=== PATIENT | female | born 1960 | race Caucasian/White ===

== ENCOUNTER 2016-10-14 20:51 | Emergency (ER) | payer OTHER ==
[2016-10-14] MEDS: IPRATROPIUM/ALBUTEROL 3 ML VIAL NEB ONE ×3 (21:00→23:16)
[2016-10-14] MEDS ORDERED: IPRATROPIUM/ALBUTEROL 3 ML VIAL NEB ONE ×2 (21:02→22:33)
[2016-10-14 21:21] VITALS: TEMP 97.8
--- NOTE | 2016-10-14 21:57 | RAD ---
EXAM DESCRIPTION: X-RAY CHEST- ONE VIEW CLINICAL HISTORY: Asthma attack and shortness of breath. COMPARISON: None. TECHNIQUE: Single view of the chest. FINDINGS: There is presence of mild left basilar discoid atelectasis/infiltrate. There is no pleural effusion There are no pneumothoraces. The cardiomediastinal silhouette is unremarkable. IMPRESSION: There is presence of mild left basilar discoid atelectasis/infiltrate. Electronically signed by: Freddie Haro MD 10/14/2016 21:56
--- NOTE | 2016-10-14 22:24 | ED.PDOC ---
History of Present Illness - General Chief Complaint: Respiratory Problem Stated Complaint: shortness of breath, asthma problems Time Seen by Provider: 10/14/16 22:23 Source: patient, RN notes reviewed, Vital Signs reviewed Exam Limitations: no limitations - History of Present Illness Comments: Patient stated that she has history of asthma and lately she had been using her albuterol mdi more about 6-8 times 2puffs Timing/Duration: getting worse, other - 7 days Cough Quality/Degree: severe, productive cough, sputum - clear Possible Cause: occasional episodes, allergen exposure Improving Factors: nothing Worsening Factors: nothing Associated Symptoms: wheezing Allergies/Adverse Reactions: Allergies NO KNOWN ALLERGY Allergy (Verified 10/14/16 21:08) Home Medications: Ambulatory Orders Albuterol Sulfate Nebs [Proventil Nebs] 2.5 mg INH TID 05/28/14 Thyroid [Victoria Thyroid] 60 mg PO DAILY 05/28/14 HYDROcodone 10MG/APAP 325MG [[place] 10/325] 1 - 2 ea PO Q4H PRN #60 tab 05/30/14 Albuterol Inhaler [Ventolin Hfa Inhaler] 2 puff INH QID PRN #1 inh 09/11/15 Azithromycin [Zithromax Z-Jose Miguel] 1 ea PO DAILY #1 pack 09/11/15 Mometasone Furoate (Inhalation [Asmanex 60 Metered Doses] 220 mcg IN BID guaiFENesin W/CODEINE LIQ [Robitussin AC] 5 - 10 ml PO QID PRN #120 ml 09/11/15 predniSONE [Prednisone] 40 mg PO DAILY #10 tab 09/11/15 Review of Systems - Review of Systems Constitutional: States: no symptoms reported EENTM: States: nose congestion Respiratory: States: see HPI, cough, wheezing Cardiology: States: no symptoms reported Gastrointestinal/Abdominal: States: no symptoms reported Genitourinary: States: no symptoms reported Musculoskeletal: States: no symptoms reported Skin: States: no symptoms reported Neurological: States: no symptoms reported Endocrine: States: no symptoms reported Hematologic/Lymphatic: States: no symptoms reported Past Medical History (General) - Patient Medical History Hx Seizures: No Hx Stroke: No Hx Asthma: Yes Hx of COPD: No Hx Cardiac Disorders: No Hx Congestive Heart Failure: No Hx Pacemaker: No Hx Hypertension: No Hx Thyroid Disease: Yes Hx Diabetes: No Hx Cancer: Yes - skin (2010) Hx MRSA: No Surgical History: cholecystectomy, other - Vaccination History Hx Tetanus, Diphtheria Vaccination: No Hx Influenza Vaccination: No Hx Pneumococcal Vaccination: Yes - 2014 - Social History Hx Tobacco Use: No Hx Chewing Tobacco Use: No Hx Alcohol Use: No Hx Substance Use: No Hx Substance Use Treatment: No Hx Depression: No Feels Threatened In Home Enviroment: No Feels Threatened In a Relationship: No Hx Physical Abuse: No Hx Emotional Abuse: No Hx Suspected Abuse: No - Female History Patient : No Family Medical History - Family History Mother Family History: No Known Living Status: Age at (years of age): 70 Hx Family Asthma: Yes - sisters Hx Family Congestive Heart Failure: No Hx Family Hypertension: No Hx Family Stroke: No Hx Cardiac Disease: No Hx Family Diabetes: No Hx Family Cancer: No Physical Exam - Physical Exam General Appearance: Alert, No apparent distress Eye Exam: bilateral normal ENT Exam: nasal congestion Neck: non-tender, supple, normal inspection Respiratory: chest non-tender, no respiratory distress, no accessory muscle use , wheezing Cardiovascular/Chest: normal peripheral pulses, regular rate, rhythm, no JVD, no murmur Gastrointestinal/Abdominal: normal bowel sounds, non tender, soft Extremity: non-tender, normal inspection, no calf tenderness Skin Exam: normal color, warm/dry Lymphatic: no adenopathy Progress - Results/Orders Results/Orders: 10/14/16 21:28 SVN/Updraft Therapy .ONCE 10/14/16 22:34 SVN/[facility] Therapy .ONCE 10/15/16 09:00 [facility] Laboratory Results WBC 9.4 K/mm3 (4.8-10.8) 10/14/16 21:25 RBC 5.05 M/mm3 (4.20-5.40) 10/14/16 21:25 Hgb 14.1 gm/dL (12.0-16.0) 10/14/16 21:25 Hct 42.2 % (36.0-47.0) 10/14/16 21:25 MCV 83.5 fl (81.0-99.0) 10/14/16 21:25 MCH 28.0 pg (27.0-31.0) 10/14/16 21:25 MCHC 33.5 g/dL (33.0-37.0) 10/14/16 21:25 RDW 13.7 % (11.5-14.5) 10/14/16 21:25 Plt Count 274 K/mm3 (130-400) 10/14/16 21:25 MPV 8.1 fl (7.40-10.4) 10/14/16 21:25 Absolute Neuts (auto) 6.60 K/uL (1.8-6.8) 10/14/16 21:25 Absolute Lymphs (auto) 2.30 K/uL (1.0-3.4) 10/14/16 21:25 Absolute Monos (auto) 0.50 K/uL (0.2-0.8) 10/14/16 21:25 Absolute Eos (auto) 0.00 K/uL (0.0-0.4) 10/14/16 21:25 Absolute Basos (auto) 0.10 K/uL (0.0-0.1) 10/14/16 21:25 Neutrophils % 70.3 % (42.0-78.0) 10/14/16 21:25 Lymphocytes % 23.9 % (20.0-50.0) 10/14/16 21:25 Monocytes % 5.0 % (2.0-9.0) 10/14/16 21:25 Eosinophils % 0.3 % (1.0-5.0) L 10/14/16 21:25 Basophils % 0.5 % (0.0-2.0) 10/14/16 21:25 Sodium 141 mmol/L (135-145) 10/14/16 21:35 Potassium 3.9 mmol/L (3.6-5.0) 10/14/16 21:35 Chloride 106 mmol/L (101-111) 10/14/16 21:35 Carbon Dioxide 26 mmol/L (21-31) 10/14/16 21:35 Anion Gap 12.9 (12-18) 10/14/16 21:35 BUN 21 mg/dL (7-18) H 10/14/16 21:35 Creatinine 0.88 mg/dL (0.6-1.3) 10/14/16 21:35 BUN/Creatinine Ratio 23.9 (10-20) H 10/14/16 21:35 Random Glucose 167 mg/dL (70-105) H 10/14/16 21:35 Serum Osmolality 288.0 mOsm/L (275-295) 10/14/16 21:35 Calcium 9.7 mg/dL (8.4-10.2) 10/14/16 21:35 Total Bilirubin 0.7 mg/dL (0.2-1.0) 10/14/16 21:35 AST 26 IU/L (10-42) 10/14/16 21:35 ALT 24 IU/L (10-60) 10/14/16 21:35 Alkaline Phosphatase 76 IU/L (42-121) 10/14/16 21:35 Serum Total Protein 8.5 gm/dL (6.4-8.2) H 10/14/16 21:35 Albumin 4.7 g/dl (3.2-5.5) 10/14/16 21:35 Globulin 3.8 gm/dL (2.3-3.5) H 10/14/16 21:35 Albumin/Globulin Ratio 1.2 (1.1-1.9) 10/14/16 21:35 Chest x ray-atelectasis/infiltrate Departure - Departure Clinical Impression: Asthmatic bronchitis with acute exacerbation Time of Disposition: 00:52 Disposition: Discharge to Home or Self Care Condition: Good Departure Forms: ED Discharge - Pt. Copy, Patient Portal Self Enrollment Home Medications: Ambulatory Orders Albuterol Sulfate Nebs [Proventil Nebs] 2.5 mg INH TID 05/28/14 Thyroid [Victoria Thyroid] 60 mg PO DAILY 05/28/14 HYDROcodone 10MG/APAP 325MG [[place] 10/325] 1 - 2 ea PO Q4H PRN #60 tab 05/30/14 Albuterol Inhaler [Ventolin Hfa Inhaler] 2 puff INH QID PRN #1 inh 09/11/15 Azithromycin [Zithromax Z-Jose Miguel] 1 ea PO DAILY #1 pack 09/11/15 Mometasone Furoate (Inhalation [Asmanex 60 Metered Doses] 220 mcg IN BID guaiFENesin W/CODEINE LIQ [Robitussin AC] 5 - 10 ml PO QID PRN #120 ml 09/11/15 predniSONE [Prednisone] 40 mg PO DAILY #10 tab 09/11/15 Additional Instructions: RETURN TO EMERGENCY ROOM NEEDED;CONTINUE WITH HOME MEDICATIONS
[2016-10-14] MEDS ORDERED: methylPREDNISolone SODIUM SUC 125 MG/2 ML VIAL IV ONE (22:31)
[2016-10-14] MEDS ORDERED: LACTATED RINGERS 1,000 ML IVS ONE (22:34)
[2016-10-14] MEDS ORDERED: BENZONATATE PERLES 100 MG CAP PO ONE (22:35)
[2016-10-14] MEDS ORDERED: diphenhydrAMINE HCL 25 MG CAP PO ONE (22:35)
[2016-10-14 23:44] VITALS: BP 121/65; O2SAT 93
== END 2016-10-15 01:38 | disposition home or self-care (01) ==
LOC: ER 20:51
DX: J45.901 Unspecified asthma with (acute) exacerbation (principal); Z79.899 Other long term (current) drug therapy; E07.9 Disorder of thyroid, unspecified; Z85.828 Personal history of other malignant neoplasm of skin; Z82.5 Family history of asthma and other chronic lower respiratory diseases
CPT/HCPCS: 36415; 71010; 80053; 85025; 94640; J2930; J7120; J7620; Q0163

== ENCOUNTER 2017-02-02 12:03 | Emergency (ER) | payer OTHER ==
[2017-02-02 12:19] VITALS: TEMP 98.7
--- NOTE | 2017-02-02 12:50 | ED.PDOC ---
History of Present Illness - General Chief Complaint: Lower Extremity Injury Stated Complaint: toe pain, jammed Time Seen by Provider: 02/02/17 12:47 Source: patient, RN notes reviewed Exam Limitations: no limitations - History of Present Illness Initial Comments: Ms. Salma Gil 56 y/o female stated that her right small toe tripped on ottoman and hyperadducted it which happened at home.Pain on the involved toe. Occurred: this morning Pain - Lower Extremity: moderate: Right Foot Method of Injury: other - jammed right small toe Improving Factors: nothing Worsening Factors: rest Allergies/Adverse Reactions: Allergies NO KNOWN ALLERGY Allergy (Verified 02/02/17 12:19) Home Medications: Ambulatory Orders Albuterol Sulfate Nebs [Proventil Nebs] 2.5 mg INH TID 05/28/14 Thyroid [[place] Thyroid] 60 mg PO DAILY 05/28/14 HYDROcodone 10MG/APAP 325MG [[place] 10/325] 1 - 2 ea PO Q4H PRN #60 tab 05/30/14 Albuterol Inhaler [Ventolin Hfa Inhaler] 2 puff INH QID PRN #1 inh 09/11/15 Azithromycin [Zithromax Z-Jose Miguel] 1 ea PO DAILY #1 pack 09/11/15 Mometasone Furoate (Inhalation [Asmanex 60 Metered Doses] 220 mcg IN BID guaiFENesin W/CODEINE LIQ [Robitussin AC] 5 - 10 ml PO QID PRN #120 ml 09/11/15 predniSONE [Prednisone] 40 mg PO DAILY #10 tab 09/11/15 Acetamin W/Cod #3 Tab [Tylenol w/CODEINE #3] 1 ea PO TID PRN #14 tab 02/02/17 Review of Systems - Review of Systems Constitutional: States: no symptoms reported EENTM: States: no symptoms reported Respiratory: States: no symptoms reported Cardiology: States: no symptoms reported Gastrointestinal/Abdominal: States: no symptoms reported Genitourinary: States: no symptoms reported Musculoskeletal: States: see HPI Skin: States: no symptoms reported Neurological: States: no symptoms reported Endocrine: States: no symptoms reported Past Medical History (General) - Patient Medical History Hx Seizures: No Hx Stroke: No Hx Asthma: Yes Hx of COPD: No Hx Cardiac Disorders: No Hx Congestive Heart Failure: No Hx Pacemaker: No Hx Hypertension: No Hx Thyroid Disease: Yes Hx Diabetes: No Hx Cancer: Yes - skin (2010) Hx MRSA: No Surgical History: cholecystectomy, other - btl - Vaccination History Hx Tetanus, Diphtheria Vaccination: No Hx Influenza Vaccination: No Hx Pneumococcal Vaccination: Yes - 2014 - Social History Hx Tobacco Use: No Hx Chewing Tobacco Use: No Hx Alcohol Use: No Hx Substance Use: No Hx Substance Use Treatment: No Hx Depression: No Hx Physical Abuse: No Hx Emotional Abuse: No Hx Suspected Abuse: No - Activities of Daily Living Hospice Agency (if applicable):: None - Female History Patient is a Female of Child Bearing Age (10 -59 yrs old): No Patient : No Family Medical History - Family History Mother Family History: No Known Living Status: Age at (years of age): 70 Hx Family Asthma: Yes - sisters Hx Family Congestive Heart Failure: No Hx Family Hypertension: Yes - mom Hx Family Stroke: No Hx Cardiac Disease: No Hx Family Diabetes: No Hx Family Cancer: No Physical Exam - Physical Exam General Appearance: Alert, Comfortable, No apparent distress Eyes, Ears, Nose, Throat: PERRL/EOMI, normal ENT inspection, TMs normal Neck: non-tender, full range of motion, supple, normal inspection Cardiovascular/Respiratory: regular rate, rhythm, no M/R/G, normal peripheral pulses, no JVD Gastrointestinal/Abdominal: non-tender, no organomegaly Back: normal inspection, no CVA tenderness, no vertebral tenderness Thigh/Hip: normal inspection, non-tender Leg: normal inspection, non-tender, no evidence of injury Knee: normal inspection, non-tender, no evidence of injury Ankle: normal inspection, non-tender, no evidence of injury Foot: normal inspection - right foot, bone tenderness - right 5th toe Neuro/Tendon: normal sensation, normal motor functions, normal tendon functions , responds to pain Mental Status: alert, oriented x 3 Skin: normal color, warm/dry Progress - Results/Orders Results/Orders: demarco taping done. - EKG/XRAY/CT Xray Comments: 5th toe- oblique fracture proxhimal pahlanx read by radiologist Departure - Departure Clinical Impression: Fracture of toe of right foot Qualifiers: Encounter type: initial encounter Toe: lesser toe Fracture type: closed Phalanx : proximal Fracture alignment: nondisplaced Qualified Code(s): S92.514A - Nondisplaced fracture of proximal phalanx of right lesser toe(s), initial encounter for closed fracture Contusion of toe of right foot Qualifiers: Encounter type: initial encounter Toe: lesser toe Damage to nail status: without damage Qualified Code(s): S90.121A - Contusion of right lesser toe(s) without damage to nail, initial encounter Time of Disposition: 13:27 Disposition: Discharge to Home or Self Care Condition: Good Departure Forms: ED Discharge - Pt. Copy, Patient Portal Self Enrollment Instructions: Toe Fracture, DI for Toe Fracture Referrals: Hernán Brown MD [Primary Care Provider] - 1-2 Weeks Prescriptions: Acetamin W/Cod #3 Tab [Tylenol w/CODEINE #3] 1 ea PO TID PRN #14 tab PRN Reason: Pain Home Medications: Ambulatory Orders Albuterol Sulfate Nebs [Proventil Nebs] 2.5 mg INH TID 05/28/14 Thyroid [[place] Thyroid] 60 mg PO DAILY 05/28/14 HYDROcodone 10MG/APAP 325MG [[place] 10/325] 1 - 2 ea PO Q4H PRN #60 tab 05/30/14 Albuterol Inhaler [Ventolin Hfa Inhaler] 2 puff INH QID PRN #1 inh 09/11/15 Azithromycin [Zithromax Z-Jose Miguel] 1 ea PO DAILY #1 pack 09/11/15 Mometasone Furoate (Inhalation [Asmanex 60 Metered Doses] 220 mcg IN BID guaiFENesin W/CODEINE LIQ [Robitussin AC] 5 - 10 ml PO QID PRN #120 ml 09/11/15 predniSONE [Prednisone] 40 mg PO DAILY #10 tab 09/11/15 Acetamin W/Cod #3 Tab [Tylenol w/CODEINE #3] 1 ea PO TID PRN #14 tab 02/02/17 Additional Instructions: FOLLOW UP WITH PRIMARY MD 02/04/17 patient to call for appointment
--- NOTE | 2017-02-02 13:12 | RAD ---
EXAM DESCRIPTION: Toes, Right CLINICAL HISTORY: 56 yearsFemale, pain. Injury. COMPARISON: None. IMPRESSION: 3 views of the right toes demonstrate a mildly displaced oblique acute fracture through the mid to distal shaft of the proximal phalanx in the fifth digit. The remaining osseous structures show no evidence of acute fracture, dislocation, or destructive osseous lesion. Mild soft tissue swelling in the fifth toe. Electronically signed by: Rajendra Hickman MD 02/02/2017 1:10 PM CDT
[2017-02-02 14:10] VITALS: BP 154/83; O2SAT 95
== END 2017-02-02 13:55 | disposition home or self-care (01) ==
LOC: ER 12:03
DX: S92.514A Nondisplaced fracture of proximal phalanx of right lesser toe(s), initial encounter for closed fracture (principal); S90.121A Contusion of right lesser toe(s) without damage to nail, initial encounter; J45.909 Unspecified asthma, uncomplicated; E07.9 Disorder of thyroid, unspecified; Z85.828 Personal history of other malignant neoplasm of skin; Z79.899 Other long term (current) drug therapy; W22.03XA Walked into furniture, initial encounter; Y92.009 Unspecified place in unspecified non-institutional (private) residence as the place of occurrence of the external cause

== ENCOUNTER 2018-03-27 14:40 | Emergency (ER) | payer MEDICARE, OTHER ==
[2018-03-27 14:50] VITALS: TEMP 97.8
--- NOTE | 2018-03-27 14:58 | ED.PDOC ---
History of Present Illness - General Chief Complaint: Lower Extremity Injury Stated Complaint: R outer foot injury Time Seen by Provider: 03/27/18 14:55 Source: patient Exam Limitations: no limitations - History of Present Illness Initial Comments: patient was working out in her garden today and fell on a sprinkler twisted her foot and felt sudden pain with inability to weight-bear. She has had a fractional same area before and this feels very similar. She otherwise has fibromyalgia, hypothyroidism, and asthma. She was in her normal usual health prior to the injury Occurred: just prior to arrival Pain - Lower Extremity: severe: Right Foot Method of Injury: twisted Improving Factors: nothing Worsening Factors: movement Allergies/Adverse Reactions: Allergies NO KNOWN ALLERGY Allergy (Verified 02/02/17 12:19) Home Medications: Ambulatory Orders Thyroid [Z[place]ia Thyroid] 60 mg PO DAILY 05/28/14 Albuterol Inhaler [Ventolin Hfa Inhaler] 2 puff INH QID PRN #1 inh 09/11/15 Amitriptyline HCl [Elavil] 50 mg PO BEDTIME 03/27/18 Meloxicam [Meloxicam] 15 mg PO DAILY 03/27/18 Montelukast [Singulair] 10 mg PO DAILY 03/27/18 Tiotropium [place] Monohydrate [Spiriva Respimat] 1 puff INH DAILY 03/27/18 Review of Systems - Review of Systems Constitutional: States: no symptoms reported. Denies: chills, fever EENTM: States: no symptoms reported Respiratory: States: no symptoms reported Cardiology: States: no symptoms reported Gastrointestinal/Abdominal: States: no symptoms reported Past Medical History (General) - Patient Medical History Hx Seizures: No Hx Stroke: No Hx Asthma: Yes Hx of COPD: No Hx Cardiac Disorders: No Hx Congestive Heart Failure: No Hx Pacemaker: No Hx Hypertension: No Hx Thyroid Disease: Yes Hx Diabetes: No Hx Cancer: Yes - skin (2010) Hx MRSA: No - Vaccination History Hx Tetanus, Diphtheria Vaccination: No Hx Influenza Vaccination: No Hx Pneumococcal Vaccination: No - Social History Hx Tobacco Use: No Hx Chewing Tobacco Use: No Hx Alcohol Use: No Hx Substance Use: No Hx Substance Use Treatment: No Hx Depression: No Hx Physical Abuse: No Hx Emotional Abuse: No Hx Suspected Abuse: No - Female History Patient : No Family Medical History - Family History Mother Family History: No Known Living Status: Age at (years of age): 70 Hx Family Asthma: Yes - sisters Hx Family Congestive Heart Failure: No Hx Family Hypertension: Yes - mom Hx Family Stroke: No Hx Cardiac Disease: No Hx Family Diabetes: No Hx Family Cancer: No Physical Exam - Physical Exam General Appearance: No apparent distress Neck: non-tender Cardiovascular/Respiratory: regular rate, rhythm, no M/R/G, normal breath sounds , no respiratory distress Gastrointestinal/Abdominal: non-tender Back: normal inspection Foot: other - swelling and tenderness to palpation with ecchymosis to the fifth metatarsal normal cap refill and normal sensation Progress - EKG/XRAY/CT Xray Comments: no fracture or dislocation Departure - Departure Clinical Impression: Sprain of right ankle or foot Disposition: Discharge to Home or Self Care Condition: Good Departure Forms: ED Discharge - Pt. Copy, Patient Portal Self Enrollment Instructions: DI for Leg Pain Activity: increase activity as tolerated Home Medications: Ambulatory Orders Thyroid [Zirconia Thyroid] 60 mg PO DAILY 05/28/14 Albuterol Inhaler [Ventolin Hfa Inhaler] 2 puff INH QID PRN #1 inh 09/11/15 Amitriptyline HCl [Elavil] 50 mg PO BEDTIME 03/27/18 Meloxicam [Meloxicam] 15 mg PO DAILY 03/27/18 Montelukast [Singulair] 10 mg PO DAILY 03/27/18 Tiotropium [place] Monohydrate [Spiriva Respimat] 1 puff INH DAILY 03/27/18 Additional Instructions: [id number] ibuprofen and Tylenol for pain. Ice to the area and slow return to normal activity as able. Follow up in 2-3 days if pain continues may require additional imaging.
--- NOTE | 2018-03-27 15:26 | RAD ---
EXAM DESCRIPTION: Foot,Right 3 Views CLINICAL HISTORY: trauma COMPARISON: None FINDINGS: 3 view(s) submitted. No fracture or dislocation is identified. Bone marrow attenuation is unremarkable. No radiopaque foreign body is identified. IMPRESSION: No acute fracture or dislocation. Electronically signed by: King Chua 03/27/2018 3:25 PM CDT
[2018-03-27 15:40] VITALS: BP 124/82; O2SAT 99
== END 2018-03-27 15:41 | disposition home or self-care (01) ==
LOC: ER 14:40
DX: S93.601A Unspecified sprain of right foot, initial encounter (principal); J45.909 Unspecified asthma, uncomplicated; E03.9 Hypothyroidism, unspecified; M79.7 Fibromyalgia; Z85.828 Personal history of other malignant neoplasm of skin; Z79.899 Other long term (current) drug therapy; W18.39XA Other fall on same level, initial encounter; Y93.H2 Activity, gardening and landscaping; Y92.007 Garden or yard of unspecified non-institutional (private) residence as the place of occurrence of the external cause

== ENCOUNTER → 2018-07-20 | Outpatient (CLI) | payer MEDICARE, OTHER | LOC: LAB.O 09:29 | PROVIDERS: ATTEND Internal Medicine | DX: R53.83 Other fatigue (principal); Z79.899 Other long term (current) drug therapy ==

== ENCOUNTER 2018-09-12 20:19 | Emergency (ER) | payer MEDICARE, OTHER ==
[2018-09-12] MEDS: IPRATROPIUM/ALBUTEROL 3 ML VIAL NEB ONE ×2 (20:27→22:10)
[2018-09-12 20:51] VITALS: TEMP 97.7
--- NOTE | 2018-09-12 21:05 | ED.PDOC ---
History of Present Illness - General Chief Complaint: Respiratory Problem Stated Complaint: difficulty breathing onset 15 mins ago Time Seen by Provider: 09/12/18 20:20 Source: patient Exam Limitations: no limitations - History of Present Illness Initial Comments: Patient presents with dyspnea since about 90 minutes [employer]. She has asthma and takes regularly scheduled breathing treatments. She tried her ProAir inhaler when this event started but it did not help. She says that her heart rate has been up several times today. She denies any chest pain or cardiac history. She is awaiting the results of media monitor that her pcp had her wear. She has a CT chest ordered for tomorrow because of her "breathing problems". She denies every having been admitted to the hospital for asthma. She has recently had several courses of steroids and "an antibiotic". No other complaints. Timing/Duration: 1-3 hours Severity: moderate Improving Factors: nothing Worsening Factors: nothing Associated Symptoms: cough - has had a dry cough along with this dyspneic episode Allergies/Adverse Reactions: Allergies Eggs or Egg-derived Products Allergy (Verified 09/12/18 21:03) Milk-related Compounds Allergy (Verified 09/12/18 21:03) Home Medications: Ambulatory Orders Thyroid [[place] Thyroid] 60 mg PO DAILY 05/28/14 Albuterol Inhaler [Ventolin Hfa Inhaler] 2 puff INH QID PRN #1 inh 09/11/15 Amitriptyline HCl [Elavil] 50 mg PO BEDTIME 03/27/18 Meloxicam [Meloxicam] 15 mg PO DAILY 03/27/18 Montelukast [Singulair] 10 mg PO DAILY 03/27/18 Tiotropium [place] Monohydrate [Spiriva Respimat] 1 puff INH DAILY 03/27/18 Prednisone [Deltasone] 20 mg PO DAILY #5 tab 09/12/18 Review of Systems - Review of Systems Constitutional: States: no symptoms reported EENTM: States: no symptoms reported Respiratory: States: see HPI Cardiology: States: no symptoms reported Gastrointestinal/Abdominal: States: no symptoms reported Genitourinary: States: no symptoms reported Musculoskeletal: States: no symptoms reported Skin: States: no symptoms reported Neurological: States: no symptoms reported Endocrine: States: no symptoms reported Hematologic/Lymphatic: States: no symptoms reported Past Medical History (General) - Patient Medical History Hx Seizures: No Hx Stroke: No Hx Asthma: Yes Hx of COPD: No Hx Cardiac Disorders: No Hx Congestive Heart Failure: No Hx Pacemaker: No Hx Hypertension: No Hx Thyroid Disease: Yes Hx Diabetes: No Hx Cancer: Yes - skin (2010) Hx MRSA: No Surgical History: cholecystectomy - Vaccination History Hx Tetanus, Diphtheria Vaccination: No Hx Influenza Vaccination: No Hx Pneumococcal Vaccination: No - Social History Hx Tobacco Use: No Hx Chewing Tobacco Use: No Hx Alcohol Use: No Hx Substance Use: No Hx Substance Use Treatment: No Hx Depression: No Hx Physical Abuse: No Hx Emotional Abuse: No Hx Suspected Abuse: No - Female History Patient : No Family Medical History - Family History Mother Family History: No Known Living Status: Age at (years of age): 70 Hx Family Asthma: Yes - sisters Hx Family Congestive Heart Failure: No Hx Family Hypertension: Yes - mom Hx Family Stroke: No Hx Cardiac Disease: No Hx Family Diabetes: No Hx Family Cancer: No Physical Exam - Physical Exam General Appearance: Alert Eye Exam: bilateral normal Ears, Nose, Throat: normal ENT inspection Neck: non-tender, full range of motion, supple Respiratory: other - mild inspiratory and expiratory wheezing. no rales/rhonchi Cardiovascular/Chest: normal peripheral pulses, no edema, tachycardia Gastrointestinal/Abdominal: normal bowel sounds, non tender, soft Back Exam: normal inspection, no CVA tenderness Extremity: normal range of motion, non-tender, normal inspection Neurologic: no motor/sensory deficits, alert, normal mood/affect, oriented x 3 Skin Exam: normal color Lymphatic: no adenopathy Progress - Progress Progress: 09/12/18 22:12 Laboratory Tests 09/12/18 09/12/18 20:46 20:46 WBC 9.0 RBC 5.15 Hgb 14.5 Hct 43.4 MCV 84.3 MCH 28.1 MCHC 33.4 RDW 13.0 Plt Count 305 MPV 7.4 Absolute Neuts (auto) 3.90 Absolute Lymphs (auto) 4.00 H Absolute Monos (auto) 0.60 Absolute Eos (auto) 0.40 Absolute Basos (auto) 0.10 Neutrophils % 43.6 Lymphocytes % 44.0 Monocytes % 7.2 Eosinophils % 4.3 Basophils % 0.9 Sodium 141 Potassium 3.5 L Chloride 104 Carbon Dioxide 27 Anion Gap 13.5 BUN 15 Creatinine 0.76 BUN/Creatinine Ratio 19.7 Random Glucose 144 H Serum Osmolality 284.6 Calcium 9.9 Total Bilirubin 0.2 AST 24 ALT 22 Alkaline Phosphatase 97 Creatine Kinase 83 CK-MB (CK-2) 1.7 CK-MB (CK-2) % Not Reportable Troponin I < 0.02 B-Natriuretic Peptide < 5.0 Serum Total Protein 7.2 Albumin 4.2 Globulin 3.0 Albumin/Globulin Ratio 1.4 Patient's dyspnea resolved after a duonebs. She did not requirt oxygen TKS >92% . Her EKG, read by me, showed sinus tachycardia at 105. There were no ST changes nor T wave inversions. No LBBB. CXR negative. CT chest showed no acute disease. There was a calcified 7 mm nodule in the left lung which she was informed of. There was an adrenal mass that she was informed of. She was advised to follow up with her pcp regarding both of these findings. Her coughing resolved in the E.D. as well. She was given Solumedrol 60 mg IV x one and one final Duonebs before discharge. She was given an RX for prednisone 20 mg po qd x 5 days with instructions to call her emergency management consultant tomorrow before filling the prescription in case they wanted to do something different. Care instructions given. E.R. warnings given. Questions were elicited and answered. The patient voiced understanding and agreement with the plan. Care instructions given. E.R. warnings given. Questions were elicited and answered. The patient voiced understanding and agreement with the plan. Departure - Departure Clinical Impression: Acute asthma Disposition: Discharge to Home or Self Care Condition: Good Departure Forms: ED Discharge - Pt. Copy, Patient Portal Self Enrollment Instructions: DI for Asthma -- Adult Activity: increase activity as tolerated Referrals: Lynda Alatorre FNP [Primary Care Provider] - 1-2 Weeks Prescriptions: Prednisone [Deltasone] 20 mg PO DAILY #5 tab Home Medications: Ambulatory Orders Thyroid [[place] Thyroid] 60 mg PO DAILY 05/28/14 Albuterol Inhaler [Ventolin Hfa Inhaler] 2 puff INH QID PRN #1 inh 09/11/15 Amitriptyline HCl [Elavil] 50 mg PO BEDTIME 03/27/18 Meloxicam [Meloxicam] 15 mg PO DAILY 06/17/18 Montelukast [Singulair] 10 mg PO DAILY 03/27/18 Tiotropium [place] Monohydrate [Spiriva Respimat] 1 puff INH DAILY 03/27/18 Prednisone [Deltasone] 20 mg PO DAILY #5 tab 09/12/18 Additional Instructions: Call your emergency management consultant in the morning and see if he has any objections to you taking the prednisone for 5 days. Keep your appointment for your Upper [facility]. Tell your emergency management consultant that we did the CT chest here and he can request the results. Return to the E.R. if your symptoms recur.
[2018-09-12] MEDS: methylPREDNISolone SODIUM SUC 125 MG/2 ML VIAL IV ONE (21:12)
--- NOTE | 2018-09-12 21:20 | RAD ---
EXAM: Chest,1 View CLINICAL INDICATION: 37-year-old female with dyspnea. TECHNIQUE: Single view, AP portable chest was obtained. COMPARISON: Single view chest 10/14/2016. FINDINGS: Unremarkable cardiac and mediastinal silhouette. Heart size is normal. Lungs are clear without focal opacity, pneumothorax or pleural effusions. Retrocardiac linear opacities suggesting subsegmental atelectasis or scarring. The visualized bones are within normal limits. IMPRESSION: No acute cardiopulmonary abnormalities. Electronically signed by: Coral Engle MD 09/12/2018 9:19 PM MEDICAL BILLING AND CODING SPECIALIST
--- NOTE | 2018-09-12 21:58 | CT ---
EXAM DESCRIPTION: Chest w/o Contrast CLINICAL HISTORY: cough and wheezing COMPARISON: None Available. TECHNIQUE: Contiguous axial images of the chest were obtained from the thoracic inlet up to the upper abdomen followed by reconstruction images. This exam was performed according to our departmental dose-optimization program, which includes automated exposure control, adjustment of the mA and/or kV according to patient size and/or use of iterative reconstruction technique. FINDINGS: Gallbladder is surgically absent. There are punctate splenic calcifications. Left adrenal soft tissue mass measures 14 mm diameter and could be an adenoma. There is a calcified 7 mm nodule in the left anterior lung. This could be sequela of prior granulomatous disease. Atelectasis involves the left lung base. The aorta is of normal contour and tapering. There is no pericardial or pleural fluid collection. There is no parenchymal consolidation or pneumothorax. Limited images of the upper abdomen are otherwise within normal limits. IMPRESSION: Left adrenal mass. No acute intrathoracic abnormality. Electronically signed by: King Chua 09/12/2018 9:57 PM [employer]
[2018-09-12 22:32] VITALS: BP 144/89; O2SAT 96
== END 2018-09-12 22:33 | disposition home or self-care (01) ==
LOC: ER 20:19
DX: J45.901 Unspecified asthma with (acute) exacerbation (principal); R00.0 Tachycardia, unspecified; R91.1 Solitary pulmonary nodule; E27.8 Other specified disorders of adrenal gland; E07.9 Disorder of thyroid, unspecified; Z79.899 Other long term (current) drug therapy; Z85.828 Personal history of other malignant neoplasm of skin

== ENCOUNTER 2019-09-15 12:12 | Emergency (ER) | payer OTHER ==
[2019-09-15 12:51] VITALS: BP 151/89; TEMP 98; O2SAT 93
--- NOTE | 2019-09-15 12:52 | RAD ---
EXAM DESCRIPTION: Chest,2 Views CLINICAL HISTORY: sob COMPARISON: September 12, 2018 FINDINGS: Two-view chest x-ray shows cardiomediastinal silhouette and pulmonary vasculature to be within normal limits. The lungs are normally aerated. Stable linear scarring or atelectasis in the left lower lobe retrocardiac region compared to previous.. Calcified pulmonary nodules in the left chest are again seen consistent with old granulomatous disease. Costophrenic angles are sharp. Mild disc degenerative changes of the spine. IMPRESSION: No radiographic evidence of acute cardiopulmonary disease. Stable chronic changes to the chest. Electronically signed by: Nick Adair MD 09/15/2019 12:51 PM [facility]
--- NOTE | 2019-09-15 13:04 | ED.PDOC ---
History of Present Illness - General Chief Complaint: Respiratory Problem Stated Complaint: Cough, congestion Time Seen by Provider: 09/15/19 12:23 Source: patient Exam Limitations: no limitations - History of Present Illness Initial Comments: The patient is a 58-year-old female presenting to the emergency room secondary to a recent asthma exacerbation related to what appears to be an acute to subacute bronchitis present over the last 5-7 days. She does take Xopenex already as well as breo for her airway disease. No definite fever. She has had a mild runny nose. Cough is mildly productive. The patient reports that she has had multiple episodes of pneumonia in the past, and would like to avoid another. No hypoxia. Vital signs are stable. Mild scattered wheezes. Mild scattered rhonchi. Timing/Duration: 1 week Severity: moderate Improving Factors: nothing Worsening Factors: nothing Associated Symptoms: cough, malaise, shortness of breath Allergies/Adverse Reactions: Allergies Eggs or Egg-derived Products Allergy (Verified 09/12/18 21:03) Milk-related Compounds Allergy (Verified 09/12/18 21:03) Home Medications: Ambulatory Orders Thyroid [[place] Thyroid] 60 mg PO DAILY 05/28/14 Albuterol Inhaler [Ventolin Hfa Inhaler] 2 puff INH QID PRN #1 inh 09/11/15 Amitriptyline HCl [Elavil] 50 mg PO BEDTIME 03/27/18 Montelukast [Singulair] 10 mg PO DAILY 03/27/18 Azithromycin 500 mg PO DAILY #5 tab 09/15/19 Fluticasone Furoate-Vilanterol [Breo Ellipta 200-25 Mcg/INH] 1 puff INH BID 09/15/19 Umeclidinium [place] [Incruse Ellipta] 1 puff INH DAILY 09/15/19 predniSONE [Prednisone] 20 mg PO DAILY #5 tab 09/15/19 Review of Systems - Review of Systems Constitutional: States: malaise EENTM: States: nose congestion Respiratory: States: cough, short of breath, wheezing Cardiology: States: no symptoms reported Gastrointestinal/Abdominal: States: no symptoms reported Genitourinary: States: no symptoms reported Musculoskeletal: States: no symptoms reported Skin: States: no symptoms reported Neurological: States: no symptoms reported Endocrine: States: no symptoms reported All other Systems: No Change from Baseline Past Medical History (General) - Patient Medical History Hx Seizures: No Hx Stroke: No Hx Asthma: Yes Hx of COPD: No Hx Cardiac Disorders: No Hx Congestive Heart Failure: No Hx Pacemaker: No Hx Hypertension: No Hx Thyroid Disease: Yes Hx Diabetes: No Hx Cancer: Yes - skin (2010) Hx MRSA: No - Vaccination History Hx Tetanus, Diphtheria Vaccination: No Hx Influenza Vaccination: No Hx Pneumococcal Vaccination: No - Social History Hx Tobacco Use: No Hx Chewing Tobacco Use: No Hx Alcohol Use: No Hx Substance Use: No Hx Substance Use Treatment: No Hx Depression: No Hx Physical Abuse: No Hx Emotional Abuse: No Hx Suspected Abuse: No - Female History Patient : No Family Medical History - Family History Mother Family History: No Known Living Status: Age at (years of age): 70 Hx Family Asthma: Yes - sisters Hx Family Congestive Heart Failure: No Hx Family Hypertension: Yes - mom Hx Family Stroke: No Hx Cardiac Disease: No Hx Family Diabetes: No Hx Family Cancer: No Physical Exam - Physical Exam General Appearance: Alert, Comfortable, No apparent distress Eye Exam: bilateral normal Ears, Nose, Throat: hearing grossly normal, nasal congestion Neck: full range of motion, supple Respiratory: no respiratory distress, no accessory muscle use, rhonchi, wheezing Cardiovascular/Chest: normal peripheral pulses, regular rate, rhythm, no edema Peripheral Pulses: radial,right: 2+, radial,left: 2+ Gastrointestinal/Abdominal: non tender, soft Rectal Exam: deferred Back Exam: no CVA tenderness, no vertebral tenderness Extremity: normal range of motion, non-tender, normal inspection, no pedal edema, normal capillary refill 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 While this is most likely viral at this point, the patient will be put on azithromycin primarily for prophylaxis against another episode of pneumonia, and to cover for atypical bacteria that can cause a bronchitis type picture. The patient will also be placed on prednisone 20 mg daily for the next 5 days for the asthma component. She is to continue her other medications for asthma. Follow back up with her primary care doctor next week. ER warnings were given for any worsening. - Results/Orders Results/Orders: chest x-ray shows no evidence of any acute process. Rapid flu is negative. Departure - Departure Clinical Impression: Asthmatic bronchitis with acute exacerbation Qualifiers: Asthma severity: moderate Asthma persistence: persistent Qualified Code(s): J45.41 - Moderate persistent asthma with (acute) exacerbation Disposition: Discharge to Home or Self Care Condition: Fair Departure Forms: ED Discharge - Pt. Copy, Patient Portal Self Enrollment Instructions: DI for Asthma -- Adult Diet: regular diet Activity: increase activity as tolerated Referrals: Shen Ruiz FNP [Primary Care Provider] - 1-2 Weeks Prescriptions: Azithromycin 500 mg PO DAILY #5 tab predniSONE [Prednisone] 20 mg PO DAILY #5 tab Home Medications: Ambulatory Orders Thyroid [[place] Thyroid] 60 mg PO DAILY 05/28/14 Albuterol Inhaler [Ventolin Hfa Inhaler] 2 puff INH QID PRN #1 inh 09/11/15 Amitriptyline HCl [Elavil] 50 mg PO BEDTIME 03/27/18 Montelukast [Singulair] 10 mg PO DAILY 03/27/18 Azithromycin 500 mg PO DAILY #5 tab 09/15/19 Fluticasone Furoate-Vilanterol [Breo Ellipta 200-25 Mcg/INH] 1 puff INH BID 09/15/19 Umeclidinium [place] [Incruse Ellipta] 1 puff INH DAILY 09/15/19 predniSONE [Prednisone] 20 mg PO DAILY #5 tab 09/15/19 Additional Instructions: the patient is a 58-year-old female with a asthma exacerbation related to what appears to be a respiratory tract infection that at this point is most clinically consistent with bronchitis. While this is most likely viral at this point, the patient will be put on azithromycin primarily for prophylaxis against another episode of pneumonia, and to cover for atypical bacteria that can cause a bronchitis type picture. The patient will also be placed on prednisone 20 mg daily for the next 5 days for the asthma component. She is to continue her other medications for asthma. Follow back up with her primary care doctor next week. ER warnings were given for any worsening.
== END 2019-09-15 13:09 | disposition home or self-care (01) ==
LOC: ER 12:12
DX: J45.41 Moderate persistent asthma with (acute) exacerbation (principal); E07.9 Disorder of thyroid, unspecified; Z85.828 Personal history of other malignant neoplasm of skin; Z79.899 Other long term (current) drug therapy; Z87.01 Personal history of pneumonia (recurrent)

== ENCOUNTER 2019-11-16 14:23 | Emergency (ER) | payer OTHER ==
[2019-11-16] MEDS ORDERED: IPRATROPIUM BROMIDE NEBS 0.5 MG/2.5 ML VIAL NEB ONE ×2 (14:33)
[2019-11-16] MEDS ORDERED: LEVALBUTEROL NEBS 1.25 MG/3 ML VIAL NEB ONE ×2 (14:33)
[2019-11-16] MEDS ORDERED: ACETYLCYSTEIN 20 % 6,000 MG/30 ML VIAL NEB ONE (14:43)
[2019-11-16 14:53] VITALS: TEMP 97.8
--- NOTE | 2019-11-16 15:20 | RAD ---
EXAM DESCRIPTION: Chest,2 Views CLINICAL HISTORY: left mid lung discomfort and cough COMPARISON: September 15, 2019 FINDINGS: Two-view chest x-ray shows cardiomediastinal silhouette and pulmonary vasculature to be within normal limits. The lungs are normally aerated and clear. Costophrenic angles are sharp. Mild disc degenerative changes of the spine are seen. IMPRESSION: No radiographic evidence of acute cardiopulmonary disease. Electronically signed by: Nick Adair MD 11/16/2019 3:19 PM [facility]
[2019-11-16] MEDS ORDERED: AMOXICILLIN & POT CLAVULANATE 875 MG TAB PO ONE (16:07)
--- NOTE | 2019-11-16 16:10 | ED.PDOC ---
History of Present Illness - General Chief Complaint: Respiratory Problem Stated Complaint: sob Time Seen by Provider: 11/16/19 14:24 Source: patient Exam Limitations: no limitations - History of Present Illness Initial Comments: The patient is a 59-year-old female with chronic reactive airway disease presenting to the emergency room secondary to persistent cough along with a left-sided chest discomfort when she coughs. The patient has had worsening of symptoms over the last 10 to 12 days. She finished up a course of azithromycin a few days ago. She is still on oral steroids along with her routine breathing treatments. She reports shortness of breath but is not hypoxic. She is not in respiratory distress. She does have mild wheezing and very mild rhonchi scattered. She is pleasant and cooperative. No fever. She is able to produce a fairly thick yellow sputum. Timing/Duration: unsure Severity: moderate Improving Factors: nothing Worsening Factors: nothing Associated Symptoms: cough, shortness of breath Allergies/Adverse Reactions: Allergies Eggs or Egg-derived Products Allergy (Verified 11/16/19 14:53) Milk-related Compounds Allergy (Verified 11/16/19 14:53) Home Medications: Ambulatory Orders Thyroid [[place] Thyroid] 60 mg PO DAILY 05/28/14 Albuterol Inhaler [Ventolin Hfa Inhaler] 2 puff INH QID PRN #1 inh 09/11/15 Amitriptyline HCl [Elavil] 50 mg PO BEDTIME 03/27/18 Montelukast [Singulair] 10 mg PO DAILY 03/27/18 Azithromycin 500 mg PO DAILY #5 tab 09/15/19 Fluticasone Furoate-Vilanterol [Breo Ellipta 200-25 Mcg/INH] 1 puff INH BID 09/15/19 Umeclidinium [place] [Incruse Ellipta] 1 puff INH DAILY 09/15/19 predniSONE [Prednisone] 20 mg PO DAILY #5 tab 09/15/19 Amoxicillin & Pot Clavulanate [Augmentin Tab] 875 mg PO BID #14 tab 11/16/19 Review of Systems - Review of Systems Constitutional: States: malaise EENTM: States: no symptoms reported Respiratory: States: cough, short of breath Cardiology: States: no symptoms reported Gastrointestinal/Abdominal: States: no symptoms reported Genitourinary: States: no symptoms reported Musculoskeletal: States: no symptoms reported Skin: States: no symptoms reported Neurological: States: no symptoms reported Endocrine: States: no symptoms reported All other Systems: No Change from Baseline Past Medical History (General) - Patient Medical History Hx Seizures: No Hx Stroke: No Hx Asthma: Yes Hx of COPD: No Hx Cardiac Disorders: No Hx Congestive Heart Failure: No Hx Pacemaker: No Hx Hypertension: No Hx Thyroid Disease: Yes Hx Diabetes: No Hx Cancer: Yes - skin (2010) Hx MRSA: No - Vaccination History Hx Tetanus, Diphtheria Vaccination: No Hx Influenza Vaccination: No Hx Pneumococcal Vaccination: No Immunizations Up to Date: No - Social History Hx Tobacco Use: No Hx Chewing Tobacco Use: No Hx Alcohol Use: No Hx Substance Use: No Hx Substance Use Treatment: No Hx Depression: No Hx Physical Abuse: No Hx Emotional Abuse: No Hx Suspected Abuse: No - Female History Patient is a Female of Child Bearing Age (10 -59 yrs old): No Patient : No Family Medical History - Family History Mother Family History: No Known Living Status: Age at (years of age): 70 Hx Family Asthma: Yes - sisters Hx Family Congestive Heart Failure: No Hx Family Hypertension: Yes - mom Hx Family Stroke: No Hx Cardiac Disease: No Hx Family Diabetes: No Hx Family Cancer: No Physical Exam - Physical Exam General Appearance: Alert, Comfortable, No apparent distress - Frequent coughing Eye Exam: bilateral normal Ears, Nose, Throat: hearing grossly normal, normal pharynx Neck: full range of motion, supple Respiratory: no respiratory distress - Frequent coughing, no accessory muscle use, rhonchi, wheezing Cardiovascular/Chest: normal peripheral pulses, regular rate, rhythm, no edema Peripheral Pulses: radial,right: 2+, radial,left: 2+ Gastrointestinal/Abdominal: non tender, soft Rectal Exam: deferred Back Exam: no CVA tenderness, no vertebral tenderness Extremity: normal range of motion, non-tender, normal inspection, no pedal edema, normal capillary refill 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 Progress - Progress Progress: 11/16/19 16:11 The patient is a 59-year-old female presented emergency room with no significant improvement over the last 10 days in her respiratory symptoms. She is to continue breathing treatments and her oral steroid. We will change the antibiotic to Augmentin for the next 7 days. She can nebulize saline several times a day as well as a mucolytic. 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 Sputum is being cultured here today. No respiratory distress, no hypoxia and vital signs are otherwise stable. ER warnings are given for any worsening. [email or web address] Departure - Departure Clinical Impression: Bronchitis Disposition: Discharge to Home or Self Care Condition: Fair Departure Forms: ED Discharge - Pt. Copy, Patient Portal Self Enrollment Instructions: DI for Asthma -- Adult Diet: regular diet Activity: increase activity as tolerated Referrals: Shen Ruiz FNP [Primary Care Provider] - 1-2 Weeks Prescriptions: Amoxicillin & Pot Clavulanate [Augmentin Tab] 875 mg PO BID #14 tab Home Medications: Ambulatory Orders Thyroid [[place] Thyroid] 60 mg PO DAILY 05/28/14 Albuterol Inhaler [Ventolin Hfa Inhaler] 2 puff INH QID PRN #1 inh 09/11/15 Amitriptyline HCl [Elavil] 50 mg PO BEDTIME 03/27/18 Montelukast [Singulair] 10 mg PO DAILY 03/27/18 Azithromycin 500 mg PO DAILY #5 tab 09/15/19 Fluticasone Furoate-Vilanterol [Breo Ellipta 200-25 Mcg/INH] 1 puff INH BID 09/15/19 Umeclidinium [place] [Incruse Ellipta] 1 puff INH DAILY 09/15/19 predniSONE [Prednisone] 20 mg PO DAILY #5 tab 09/15/19 Amoxicillin & Pot Clavulanate [Augmentin Tab] 875 mg PO BID #14 tab 11/16/19 Additional Instructions: The patient is a 59-year-old female presented emergency room with no significant improvement over the last 10 days in her respiratory symptoms. She is to continue breathing treatments and her oral steroid. We will change the antibiotic to Augmentin for the next 7 days. She can nebulize saline several times a day as well as a mucolytic. 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 Sputum is being cultured here today. No respiratory distress, no hypoxia and vital signs are otherwise stable. ER warnings are given for any worsening.
[2019-11-16 16:34] VITALS: BP 134/92; O2SAT 95
== END 2019-11-16 16:34 | disposition home or self-care (01) ==
LOC: ER 14:23
DX: J45.909 Unspecified asthma, uncomplicated (principal); R00.0 Tachycardia, unspecified; E07.9 Disorder of thyroid, unspecified; Z85.828 Personal history of other malignant neoplasm of skin; Z79.899 Other long term (current) drug therapy
CPT/HCPCS: 71046; 87070; 94640; J7614; J7644

== ENCOUNTER → 2020-04-18 | Outpatient (CLI) | payer OTHER | LOC: LAB.O 15:41 | PROVIDERS: ATTEND Internal Medicine | DX: Z79.899 Other long term (current) drug therapy (principal); Z86.19 Personal history of other infectious and parasitic diseases ==

== ENCOUNTER 2020-05-21 09:53 | Emergency (ER) | payer OTHER ==
--- NOTE | 2020-05-21 10:31 | ED.PDOC ---
History of Present Illness - General Chief Complaint: Chest Pain/MS Stated Complaint: syncope, chest tightness Time Seen by Provider: 05/21/20 10:22 Additional Information: Patient is a 59-year-old female who presents to the ED with chief complaint of palpitations. Patient was at work today and felt her heart race. She has an apple watch and noted that her heart rate had gone into the 120s. Patient indicates she had a very brief syncopal episode associated with the palpitations. Patient denies chest pain, shortness of breath, cough, fever, chills, nausea, vomiting. She did indicate that she had some numbness and tingling in her left arm. Patient has had a total thyroidectomy and takes "Armor thyroid substitute". Patient has had issues with palpitations in the past and has seen a building construction contractor, Dr. Desir in [place]. She reports elevated HR at that time to 140. She has had a Holter monitor testing done but she does not know the results as she has not gone back for follow-up. Dr. Desir had placed patient on metoprolol to control her palpitations but she is only taking that as needed and is not taking it presently. Patient is feeling back to normal at this time. She indicates that she is under considerable st ress at work with a payroll deadline that was due today. - History of Present Illness Allergies/Adverse Reactions: Allergies Eggs or Egg-derived Products Allergy (Verified 11/16/19 14:53) Milk-related Compounds Allergy (Verified 11/16/19 14:53) Home Medications: Ambulatory Orders Thyroid [[place] Thyroid] 60 mg PO DAILY 05/28/14 Albuterol Inhaler [Ventolin Hfa Inhaler] 2 puff INH QID PRN #1 inh 09/11/15 Amitriptyline HCl [Elavil] 50 mg PO BEDTIME 03/27/18 Montelukast [Singulair] 10 mg PO DAILY 03/27/18 Azithromycin 500 mg PO DAILY #5 tab 09/15/19 Fluticasone Furoate-Vilanterol [Breo Ellipta 200-25 Mcg/INH] 1 puff INH BID 09/15/19 Umeclidinium Onley [Incruse Ellipta] 1 puff INH DAILY 09/15/19 predniSONE [Prednisone] 20 mg PO DAILY #5 tab 09/15/19 Amoxicillin & Pot Clavulanate [Augmentin Tab] 875 mg PO BID #14 tab 11/16/19 Amoxicillin & Pot Clavulanate [Augmentin Tab] 875 mg PO BID 10 Days tab 12/05/19 Benzonatate Perles [Tessalon Perles] 100 mg PO Q8H PRN #20 cap 12/05/19 Doxycycline Hyclate 100 mg PO BID 10 Days cap 12/05/19 Ipratropium Onley Hfa [Atrovent Hfa] 17 mcg IN Q6H PRN #1 aer 12/05/19 Albuterol Sulfate Nebs [Proventil Nebs] 2.5 mg NEB Q4HR 10 Days vial 12/10/19 Benzonatate 200 mg PO TID #12 cap 12/10/19 Ipratropium On[place] Nebs [Atrovent NEBS] 0.5 mg NEB Q4HR 5 Days vial 12/10/19 Nebulizers [Nebulizer System All-in-O] 1 kit XX Q4HR 10 Days kit 12/10/19 Prednisone 50 mg PO DAILY #5 tab 12/10/19 Review of Systems - Review of Systems Constitutional: States: no symptoms reported. Denies: chills, fever EENTM: States: no symptoms reported Respiratory: States: no symptoms reported. Denies: cough, short of breath Cardiology: States: palpitations, syncope Gastrointestinal/Abdominal: States: no symptoms reported. Denies: abdominal pain, nausea, vomiting Musculoskeletal: States: no symptoms reported. Denies: muscle pain Skin: States: no symptoms reported. Denies: rash Neurological: Denies: headache, weakness Endocrine: States: no symptoms reported. Denies: increased hunger, increased thirst, increased urine All other Systems: Reviewed and Negative Past Medical History (General) - Patient Medical History Hx Seizures: No Hx Stroke: No Hx Asthma: Yes Hx of COPD: No Hx Cardiac Disorders: Yes - "erratic HR" Hx Congestive Heart Failure: No Hx Pacemaker: No Hx Hypertension: No Hx Thyroid Disease: Yes Hx Diabetes: No Hx Cancer: Yes - skin (2010) Hx MRSA: No - Vaccination History Hx Tetanus, Diphtheria Vaccination: No Hx Influenza Vaccination: No - allergic to eggs Hx Pneumococcal Vaccination: No - Social History Hx Tobacco Use: No Hx Chewing Tobacco Use: No Hx Alcohol Use: No Hx Substance Use: No Hx Substance Use Treatment: No Hx Depression: No Hx Physical Abuse: No Hx Emotional Abuse: No Hx Suspected Abuse: No - Female History Patient : No Family Medical History - Family History Mother Family History: No Known Living Status: Age at (years of age): 70 Hx Family Asthma: Yes - sisters Hx Family Congestive Heart Failure: No Hx Family Hypertension: Yes - mom Hx Family Stroke: No Hx Cardiac Disease: No Hx Family Diabetes: No Hx Family Cancer: No Physical Exam - Physical Exam General Appearance: Alert, Comfortable, No apparent distress Neck: supple, normal inspection Respiratory: chest non-tender, lungs clear, normal breath sounds, no respiratory distress, no accessory muscle use Cardiovascular/Chest: normal peripheral pulses, regular rate, rhythm - Rate 87 on the monitor, no edema, no gallop, no JVD, no murmur Peripheral Pulses: radial,right: 2+, radial,left: 2+ Gastrointestinal/Abdominal: normal bowel sounds, non tender, soft, no organomegaly, no pulsatile mass Extremity: normal inspection 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 05/21/20 10:34 EKG: Normal sinus rhythm, rate 100, normal QRS, normal axis, nonspecific ST changes, normal T waves. Negative STEMI. EKG read by Aston Mcknight MD. 05/21/20 11:51 I have spoken with Dr[address] Desir's nurse who is requested that I fax patient's EKG to them and he will review and call me back. Patient is asymptomatic at this time and her initial troponin is normal as is her d-dimer and free T4. 05/21/20 15:19 Patient reassessed and is very eager to be discharged home.. Patient's repeat troponin is negative and she has remained asymptomatic in the ED with no episodes of chest pain or palpitations. Patient is a low risk HEART score. I have called Dr. Desir again and apparently he is now in STEMI but will call back when he is out of his procedure. I discussed with patient that she does not need to be in the ED any longer and does not require admission but she does require follow-up with Dr. Desir. I have advised her to take her previously prescribed labetalol daily as directed and not as needed and she will call Dr. Desir's office tomorrow to make an appointment for reevaluation later this week. She will return to the ED if her symptoms worsen. Vital signs stable, patient is NAD and looks clinically well and I believe is safe for discharge with outpatient follow-up. Follow-up instructions, discharge instructions and return to ED precautions discussed with patient. Patient voices understanding and willingness to comply with instructions. All laboratory and radiographic results have been discussed with the patient, and all questions answered. Patient is happy with plan. 05/21/20 15:36 Dr. Desir has just called me back and I have reviewed plan with him for patient to continue with the labetalol and follow-up in his office this week and Dr. Desir is in agreement. I discussed this with patient and she voices understanding and will call his office tomorrow to make an appointment. Departure - Departure Clinical Impression: Palpitations Chest pain Qualifiers: Chest pain type: unspecified Qualified Code(s): R07.9 - Chest pain, unspecified Time of Disposition: 15:21 Disposition: Discharge to Home or Self Care Condition: Fair Departure Forms: ED Discharge - Pt. Copy, Patient Portal Self Enrollment Instructions: DI for Chest Pain, Chest Pain, Palpitations Home Medications: Ambulatory Orders Thyroid [[place] Thyroid] 60 mg PO DAILY 05/28/14 Albuterol Inhaler [Ventolin Hfa Inhaler] 2 puff INH QID PRN #1 inh 09/11/15 Amitriptyline HCl [Elavil] 50 mg PO BEDTIME 03/27/18 Montelukast [Singulair] 10 mg PO DAILY 03/27/18 Azithromycin 500 mg PO DAILY #5 tab 09/15/19 Fluticasone Furoate-Vilanterol [Breo Ellipta 200-25 Mcg/INH] 1 puff INH BID 09/15/19 Umeclidinium Onley [Incruse Ellipta] 1 puff INH DAILY 09/15/19 predniSONE [Prednisone] 20 mg PO DAILY #5 tab 09/15/19 Amoxicillin & Pot Clavulanate [Augmentin Tab] 875 mg PO BID #14 tab 11/16/19 Amoxicillin & Pot Clavulanate [Augmentin Tab] 875 mg PO BID 10 Days tab 12/05/19 Benzonatate Perles [Tessalon Perles] 100 mg PO Q8H PRN #20 cap 12/05/19 Doxycycline Hyclate 100 mg PO BID 10 Days cap 12/05/19 Ipratropium [place] Hfa [Atrovent Hfa] 17 mcg IN Q6H PRN #1 aer 12/05/19 Albuterol Sulfate Nebs [Proventil Nebs] 2.5 mg NEB Q4HR 10 Days vial 12/10/19 Benzonatate 200 mg PO TID #12 cap 12/10/19 Ipratropium [place] Nebs [Atrovent NEBS] 0.5 mg NEB Q4HR 5 Days vial 12/10/19 Nebulizers [Nebulizer System All-in-O] 1 kit XX Q4HR 10 Days kit 12/10/19 Prednisone 50 mg PO DAILY #5 tab 12/10/19 Additional Instructions: Call Dr. Desir's office tomorrow to make an appointment for reevaluation later in the week. Please take your previously prescribed labetalol daily as directed and return to the ED for worsening chest pain or uncontrolled palpitations.
[2020-05-21] MEDS ORDERED: PROMETHAZINE HCL INJ 12.5 MG in SODIUM CHLORIDE 0.9% 50ML 50 ML IVPB ONE (12:39)
[2020-05-21 17:11] VITALS: BP 136/74; TEMP 98; O2SAT 99
--- NOTE | 2020-05-21 20:11 | RAD ---
Study: Single Frontal Radiograph of the Chest. Indication:SOB Comparison: December 05, 2019 Impression: Heart size normal. Lungs clear. No acute osseous abnormality. Electronically signed by: Pb Campo MD 05/21/2020 11:00 AM CDT
== END 2020-05-21 15:52 | disposition home or self-care (01) ==
LOC: ER 09:53
DX: R07.9 Chest pain, unspecified (principal); R00.2 Palpitations; R55 Syncope and collapse; R20.0 Anesthesia of skin; E89.0 Postprocedural hypothyroidism; J45.909 Unspecified asthma, uncomplicated; Z79.899 Other long term (current) drug therapy; Z85.828 Personal history of other malignant neoplasm of skin